=== PATIENT | female | born 1985 | race Caucasian/White ===

== ENCOUNTER 2017-11-01 10:54 | Inpatient (IN) | payer MEDICAID ==
[2017-11-01] MEDS ORDERED: hydrOXYzine HCl 25 MG Tab PO PRN (11:44)
[2017-11-01] MEDS ORDERED: hydrOXYzine HCl 25 MG Tab PO ONE (19:38)
[2017-11-02] MEDS ORDERED: Misoprostol 25 MCG (1/4 of 100 MCG) Tab VAG PRN (00:06)
[2017-11-02] MEDS ORDERED: Sodium Chloride 0.9% 10 ML Syringe FLUSH PRN (00:06)
[2017-11-02] MEDS ORDERED: Lactated Ringers 500 ML IV ONE (00:10)
[2017-11-02] MEDS ORDERED: Nalbuphine 20 MG/1 ML Amp IVPUSH PRN (00:10)
[2017-11-02] MEDS ORDERED: Lidocaine 1% 30 ML SDV INJECT PRN (00:10)
[2017-11-02] MEDS ORDERED: Ondansetron 4 MG/2 ML SDV IV PRN (00:10)
[2017-11-02] MEDS ORDERED: Carboprost Tromethamine 250 MCG/1 ML Amp IM PRN (00:10)
[2017-11-02] MEDS ORDERED: Methylergonovine 0.2 MG/1 ML Amp IM PRN (00:10)
[2017-11-02] MEDS ORDERED: Misoprostol 400 MCG (4 X 100 MCG TAB) RECTAL PRN (00:10)
[2017-11-02] MEDS ORDERED: Nalbuphine 20 MG/1 ML Amp IM PRN (00:15)
[2017-11-02] MEDS: Lactated Ringers 1,000 ML IV SCH ×3 (00:25→07:55)
[2017-11-02] MEDS: Oxytocin/Normal Saline 30 UNIT/500 ML BAG IV SCH ×2 (00:33→08:31)
[2017-11-02] MEDS ORDERED: fentaNYL 100 MCG/2 ML SDV ONE (02:41)
[2017-11-02] MEDS ORDERED: EPINEPHrine 1 MG/ML SDV ONE (02:42)
--- NOTE | 2017-11-02 03:10 | PCM.SN ---
- Free Text/Narrative Note: Intrathecal. Sitting position, sterile prep and drape. 1 % lidocaine w bicarb for skinwheal to L2 L3 interspace. Introducer, 24 ga pencan x 1. Pos CSF, neg heme, neg parasthesia. 1:1000 epi wash, 20 mcg PF sufenta, 30 mcg pf fentanyl, 0.4 mnl pf NS, 6 mg of 0.75% pf bupivacaine injected after CSF aspiration. Pt to L lateral position. Procedure time 0245 to 0310
[2017-11-02] MEDS ORDERED: Simethicone 80 MG Tab.Chew PO PRN (07:45)
[2017-11-02] MEDS ORDERED: Benzocaine/Menthol 20%-0.5% Spray 56 GM Canister TOP PRN (07:45)
[2017-11-02] MEDS ORDERED: Zolpidem 5 MG Tab PO PRN (07:45)
--- NOTE | 2017-11-02 07:55 | PCM.LDHP ---
L&D History of Present Illness - General Date of Service: 11/02/17 Admit Problem/Dx: Patient Status Order with Admit Dx/Problem 11/01/17 15:00 Admission Status [Patient Status] [ADT] Routine 11/02/17 00:11 Patient Status [ADT] Routine Admission Diagnosis/Problem Admission Diagnosis/Problem Source of Information: Patient, Family, Old Records History Limitations: Reports: No Limitations - History of Present Illness Introduction:: presented with contractions, admitted by Dr. Nickerson for observation, contractions progressing, will admit for induction as scheduled, and proceed with pitocin augmentation of labor. 32yo WF @ 39 weeks with diet- controlled GDM, elevated BP without pre-E. see notes for details. Timing/Duration: Reports: intermittent Location, : Reports: Uterus Quality: Reports: Same as Previous Episode Severity: Moderate Pain Score: 4 Associated Symptoms: Reports: vaginal discharge, mild amount - Related Data Allergies/Adverse Reactions: Allergies Allergy/AdvReac Type Severity Reaction Status Date / Time Penicillins Allergy Rash Verified 11/01/17 11:49 Home Medications: Home Meds Vits #93/Iron Fum/FA [ Formula Tablet] 1 tab PO DAILY 09/28/17 [History] Ferrous Sulfate 65 mg PO WITHBREAKFAST 10/10/17 [History] Ascorbic Acid [Vitamin C] 1 tab PO DAILY 10/17/17 [History] B12/Levomefolate Calcium/B-6 [Folbic Rf Tablet] 1 tab PO DAILY 10/17/17 [History ] Past Medical History 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 , , Other (See Below) Other OB/BYN History: one fallopian tube removed Endocrine/Metabolic History: Reports: Diabetes, Gestational Dermatologic History: Reports: Psoriasis - Infectious Disease History Infectious Disease History: Reports: Chicken Pox Social & Family History - Tobacco Use Smoking Status *Q: Never Smoker Second Hand Smoke Exposure: No - Caffeine Use Caffeine Use: Reports: None - Alcohol Use Alcohol Use History: No Alcohol Use Frequency: Socially - Recreational Drug Use Recreational Drug Use: No H&P Review of Systems - Review of Systems: Review Of Systems: See Below General: Reports: No Symptoms HEENT: Reports: No Symptoms Pulmonary: Reports: No Symptoms Cardiovascular: Reports: No Symptoms Gastrointestinal: Reports: No Symptoms Genitourinary: Reports: Other (labor) Musculoskeletal: Reports: No Symptoms Skin: Reports: Rash (psoriasis) Psychiatric: Reports: No Symptoms Neurological: Reports: No Symptoms Hematologic/Lymphatic: Reports: No Symptoms Immunologic: Reports: No Symptoms L&D Exam - Exam Exam: See Below - Vital Signs Vital Signs: Last Vital Signs Temp 98.8 F 11/02/17 05:00 Pulse 96 11/02/17 05:15 Resp 16 11/02/17 05:15 BP 118/66 11/02/17 05:15 Pulse Ox 95 11/02/17 03:30 Weight: 192 lb - OB Specific Contraction Duration (sec): 70-90 Contraction Frequency (min): 2-3 Contraction Intensity: Mild to Moderate Movement: Active Heart Tones: Present Heart Tones per Min: 140 (NST reactive) Heart Rate (FHR) Variability: Moderate (6-25 bmp) Presentation: Right Occiput Anterior (JACINDA) Estimated Weight: 7lb-7.5lb - Exam General: Alert, Oriented HEENT: PERRLA, Conjunctiva Clear, EACs Clear, EOMI, Hearing Intact, Mucosa Moist & [place], Nares Patent, Normal Nasal Septum, Posterior Pharynx Clear, TMs Clear Neck: Supple, Trachea Midline Lungs: Clear to Auscultation, Normal Respiratory Effort Cardiovascular: Regular Rate, Regular Rhythm GI/Abdominal Exam: Normal Bowel Sounds, Soft, Non-Tender, No Organomegaly, No Distention, No Abnormal Bruit, No Mass, Pelvis Stable Rectal Exam: Normal Exam Genitourinary: Normal external exam, Normal bimanual exam, Normal speculum exam Back Exam: Normal Inspection, Full Range of Motion Extremities: Normal Inspection, Normal Range of Motion, Non-Tender, No Pedal Edema, Normal Capillary Refill Skin: Warm, Dry, Intact, Rash Neurological: Cranial Nerves Intact, Reflexes Equal Bilateral Psychiatric: Alert, Normal Affect, Normal Mood - Patient Data Lab Results Last 24 hrs: Laboratory Results - last 24 hr 11/02/17 11/02/17 Range/Units 00:25 00:25 WBC 16.5 H (5.0-10.0) 10^3/uL RBC 3.97 L (4.2-5.4) 10^6/uL Hgb 13.0 (12.0-16.0) g/dL Hct 37.5 (37.0-47.0) % MCV 94.5 (80-100) fL MCH 32.7 (27.0-34.0) pg MCHC 34.7 (33.0-35.0) g/dL Plt Count 169 (150-450) 10^3/uL BUN 8 (7-18) mg/dL Creatinine 0.7 (0.6-1.3) mg/dL Est Cr Clr Drug Dosing 118.54 mL/min Estimated GFR (MDRD) > 60 Glucose 100 (74-105) mg/dL Uric Acid 4.3 (2.6-7.2) mg/dL AST 19 (10-42) IU/L Alkaline Phosphatase 100 (42-121) IU/L Lactate Dehydrogenase 149 (91-180) IU/L Result Diagrams: 11/02/17 00:25 11/02/17 00:25 - Problem List (1) SNOMED Code(s): 18042620 ICD Code: Z34.90 - ENCNTR FOR SUPRVSN OF NORMAL , UNSP, UNSP TRIMESTER Status: Acute Current Visit: Yes (2) Labor established SNOMED Code(s): 80552499 ICD Code: ZQK5621 - Status: Acute Current Visit: Yes (3) Gestational diabetes mellitus (GDM) affecting SNOMED Code(s): 62458383249212 ICD Code: O24.419 - GESTATIONAL DIABETES MELLITUS IN , UNSP CONTROL Status: Acute Current Visit: Yes (4) Gestational hypertension SNOMED Code(s): 99404021 ICD Code: O13.9 - GESTATIONAL HTN W/O SIGNIFICANT PROTEINURIA, UNSP TRIMESTER Status: Acute Current Visit: Yes (5) Blood type O+ SNOMED Code(s): 219139631 ICD Code: Z67.40 - TYPE O BLOOD, RH POSITIVE Status: Acute Current Visit : Yes (6) Rubella immune SNOMED Code(s): 644311666 ICD Code: Z78.9 - OTHER SPECIFIED HEALTH STATUS Status: Acute Current Visit: Yes (7) Group B Streptococcus not isolated SNOMED Code(s): 405594724 ICD Code: NWM9232 - Status: Acute Current Visit: Yes Problem List Initiated/Reviewed/Updated: Yes Orders Last 24hrs: Active Orders 24 hr Category Date Time Status Admission Status [Patient Status] [ADT] Routine ADT 11/01/17 15:00 Active Patient Status [ADT] Routine ADT 11/02/17 00:11 Active Communication Order [RC] ASDIRECTED Care 11/02/17 00:06 Active Communication Order [RC] ASDIRECTED Care 11/02/17 00:11 Active Monitoring [RC] PER UNIT ROUTINE Care 11/02/17 00:06 Active Notify Provider Vital Signs OB [RC] ASDIRECTED Care 11/02/17 00:06 Active Notify Provider [RC] PRN Care 11/02/17 00:06 Active Notify Provider [RC] PRN Care 11/02/17 00:11 Active Notify Provider [RC] STAT Care 11/02/17 00:06 Active OB Check [OM.PC] Click To Edit Care 11/01/17 11:45 Ordered Peripheral IV Care [RC] 08,20 Care 11/02/17 00:06 Active Pump Management, Intrathecal [RC] ASDIRECTED Care 11/02/17 00:12 Active Up ad Joceline [RC] PER UNIT ROUTINE Care 11/02/17 00:06 Active Vaginal Exam [RC] PRN Care 11/02/17 00:06 Active Vital Signs [RC] PER UNIT ROUTINE Care 11/02/17 00:06 Active Vital Signs [RC] PER UNIT ROUTINE Care 11/02/17 00:11 Active Consult to Furniture Sander [CONS] Routine Cons 11/02/17 07:45 Ordered Regular Diet [DIET] Diet 11/02/17 Breakfast Ordered CBC W/O DIFF,HEMOGRAM [HEME] AM Lab 11/04/17 05:11 Ordered PROTEIN/CREATININE RATIO,URINE [URCHEM] Routine Lab 11/02/17 00:09 Uncollected UA W/O MICROSCOPIC [URIN] Routine Lab 11/02/17 00:09 Uncollected Acetaminophen [Tylenol] Med 11/02/17 00:06 Active 650 mg PO Q4H PRN Benzocaine/Menthol [Dermoplast Pain Relief [place]] Med 11/02/17 07:45 Ordered See Dose Instructions TOP Q4H PRN Carboprost Tromethamine [Hemabate DS] Med 11/02/17 00:10 Active 250 mcg IM ASDIRECTED PRN Docusate Sodium [Colace] Med 11/02/17 07:45 Ordered 100 mg PO BID PRN Ibuprofen [Motrin] Med 11/02/17 07:45 Ordered 800 mg PO Q8H PRN Lactated Ringers [Ringers, Lactated] 1,000 ml Med 11/02/17 00:15 Active IV ASDIRECTED Lidocaine 1% [Xylocaine-MPF 1%] Med 11/02/17 00:10 Active 10 ml INJECT ASDIRECTED PRN Methylergonovine [Methergine] Med 11/02/17 00:10 Active 0.2 mg IM ASDIRECTED PRN Misoprostol [Cytotec] Med 11/02/17 00:06 Active 25 mcg VAG Q4H PRN Misoprostol [Cytotec] Med 11/02/17 00:10 Active 800 mcg RECTAL ASDIRECTED PRN Nalbuphine [Nubain] Med 11/02/17 00:10 Active 10 mg IVPUSH ONETIME PRN Nalbuphine [Nubain] Med 11/02/17 00:15 Active 20 mg IM ONETIME PRN Ondansetron [Zofran] Med 11/02/17 00:10 Active 4 mg IV Q4H PRN Oxytocin/Normal Saline [Pitocin in NS 30 UNIT/500 ML] Med 11/02/17 00:15 Active 30 unit in 500 ml IV TITRATE Vit with Ca/FA/Iron [ Plus Iron] Med 11/02/17 09:00 Ordered 1 each PO DAILY Simethicone Med 11/02/17 07:45 Ordered 80 mg PO Q4H PRN Sodium Chloride 0.9% [Saline Flush] Med 11/02/17 00:06 Active 10 ml FLUSH ASDIRECTED PRN Zolpidem [Ambien] Med 11/02/17 07:45 Ordered 5 mg PO BEDTIME PRN hydrOXYzine HCl [Atarax] Med 11/01/17 11:44 Active 50 mg PO ONETIME PRN Assess Lochia [WOMSER] Per Unit Routine Oth 11/02/17 07:45 Ordered Assess Uterine Involution [WOMSER] Per Unit Routine Oth 11/02/17 07:45 Ordered Breast Pump [WOMSER] Per Unit Routine Oth 11/02/17 07:45 Ordered Ice Therapy [OM.PC] Per Unit Routine Oth 11/02/17 07:45 Ordered Perineal Care [OM.PC] Per Unit Routine Oth 11/02/17 07:45 Ordered Peripheral IV Insertion Adult [OM.PC] Urgent Oth 11/02/17 00:06 Ordered Sitz Bath [OM.PC] Per Unit Routine Oth 11/02/17 07:45 Ordered Resuscitation Status Routine Resus Stat 11/02/17 00:10 Ordered Medication Orders Acetaminophen (Tylenol) 650 mg PO Q4H PRN PRN Reason: Pain/Fever Benzocaine/Menthol (Dermoplast Pain Relief [place]) 0 gm TOP Q4H PRN PRN Reason: Perineal comfort measures Carboprost Tromethamine (Hemabate Ds) 250 mcg IM ASDIRECTED PRN PRN Reason: HEMORRHAGE Docusate Sodium (Colace) 100 mg PO BID PRN PRN Reason: Constipation Hydroxyzine HCl (Atarax) 50 mg PO ONETIME PRN PRN Reason: Pain Last Admin: 11/01/17 12:21 Dose: 50 mg Lactated Ringer's (Ringers, Lactated) 1,000 mls @ 125 mls/hr IV ASDIRECTED TODD Last Admin: 11/02/17 02:46 Dose: 125 mls/hr Infusion: 11/02/17 02:46 Dose: 125 mls/hr Admin: 11/02/17 00:25 Dose: 125 mls/hr Oxytocin/Sodium Chloride (Pitocin In Ns 30 Unit/500 Ml) 30 unit in 500 mls @ 2 mls/hr IV TITRATE TODD; 2 MUNITS/MIN PRN Reason: Protocol Last Titration: 11/02/17 03:57 Dose: 10 mls/hr Titration: 11/02/17 03:19 Dose: 8 mls/hr Titration: 11/02/17 01:40 Dose: 6 mls/hr Titration: 11/02/17 01:07 Dose: 4 mls/hr Admin: 11/02/17 00:33 Dose: 2 munits/min, 2 mls/hr Ibuprofen (Motrin) 800 mg PO Q8H PRN PRN Reason: Mild Pain or Fever Lidocaine HCl (Xylocaine-Mpf 1%) 10 ml INJECT ASDIRECTED PRN PRN Reason: Perineal Repair Methylergonovine Maleate (Methergine) 0.2 mg IM ASDIRECTED PRN PRN Reason: Hemorrhage Misoprostol (Cytotec) 25 mcg VAG Q4H PRN PRN Reason: cervical ripening Misoprostol (Cytotec) 800 mcg RECTAL ASDIRECTED PRN PRN Reason: Hemorrhage Nalbuphine HCl (Nubain) 10 mg IVPUSH ONETIME PRN PRN Reason: Pain (moderate 4-6) Nalbuphine HCl (Nubain) 20 mg IM ONETIME PRN PRN Reason: Pain Last Admin: 11/02/17 00:36 Dose: 20 mg Ondansetron HCl (Zofran) 4 mg IV Q4H PRN PRN Reason: Nausea/Vomiting Last Admin: 11/02/17 02:35 Dose: 4 mg Prenat Multivit/Social Insurance Analyst/Iron/Folic Ac ( Plus Iron) 1 each PO DAILY TODD Simethicone (Simethicone) 80 mg PO Q4H PRN PRN Reason: Gas Sodium Chloride (Saline Flush) 10 ml FLUSH ASDIRECTED PRN PRN Reason: Keep Vein Open Zolpidem Tartrate (Ambien) 5 mg PO BEDTIME PRN PRN Reason: Insomnia Assessment/Plan Comment:: Assessment: 39 weeks GDM--diet controlled gestational HTN--no pre-E psoriasis early labor O+ RI GBS negative NST reactive Plan: admit pre-E labs pitocin augmentation check glucose continue to follow closely hmb
--- NOTE | 2017-11-02 08:14 | PCM.DEL ---
L & D Note - General Info Date of Service: 11/02/17 Mother's Due Date: 11/09/17 - Delivery Note Labor: Spontaneous, Augmented by Oxytocin Delivery Outcome: Livebirth Infant Delivery Method: Spontaneous Vaginal Delivery-Single Infant Delivery Mode: Vacuum Extraction Presentation: Right Occiput Anterior (JACINDA) Nuchal Cord: Present, Reduced Anesthesia Type: Intrathecal Amniotic Fluid Description: Clear Episiotomy Type: None Laceration: 1st Degree, Perineal Suture type: Other Suture size: 3-0 Placenta: Intact, Expressed Cord: 3 Vessels (mebranous insertion) Estimated Blood Loss: 350 Resuscitation Needed: No [place]: Suctioned, Bulb Syringe, Stimulated, Warmed (to mother's chest skin to skin), [place] Used Provider: Marisol Loaiza Score 1 min: 8 Score 5 min: 9 Second Stage Interventions: Reports: Pushing Effectively, Pushing, McRobert's Position, Pushing, Pulls Own Legs Back Delivery Comments (Free Text/Narrative):: mother pushing in [place], holding own legs. head crowing out about orange size with several contractions. vacuum applied with one push to assist for delivery without complication. hmb Vacuum Extractor Progress Note - Alternative Labor Strategies Considered Alternative Labor Strategies Considered:: Reports: Yes Strategies Considered:: Reports: Contraction Intensity Adequate Indications Considered:: Reports: Yes Indications:: Reports: Shortening of 2nd Stage for Maternal Benefit, Suspicion of Immediate or Potential Compromise Time Out:: Reports: Yes - Patient Prepared Patient Prepared:: Reports: Yes Informed Consent:: Reports: Verbal Risks: Reports: Yes Anesthesia/Analgesia Adequate:: Reports: Yes - Probability of Success High Probability of Success:: Reports: Yes Weight Estimated:: Reports: AGA Patient Diabetic:: Reports: Yes Pelvis Adequate:: Reports: Yes Position:: JACINDA Asynclitic:: Reports: No Station:: +3, past - Application Time Maximum Application Time & Number of Pop-Offs Predetermined:: Reports: Yes Type of Vacuum Used:: Reports: Cup: [place] type Vacuum Extraction: Successful - Exit Strategy Exit strategy available:: Reports: Yes and resuscitation teams readily available:: Reports: Yes Consult as indicated:: not necessary Comments:: vacuum cup applied for one push with successful delivery. b - General Info Admission Dx/Problem (Free Text): Patient Status Order with Admit Dx/Problem 11/01/17 15:00 Admission Status [Patient Status] [ADT] Routine 11/02/17 00:11 Patient Status [ADT] Routine Admission Diagnosis/Problem Admission Diagnosis/Problem Functional Status: Reports: Pain Controlled - Patient Data Vitals - Most Recent: Last Vital Signs Temp 98.8 F 11/02/17 05:00 Pulse 96 11/02/17 05:15 Resp 16 11/02/17 05:15 BP 118/66 11/02/17 05:15 Pulse Ox 95 11/02/17 03:30 Weight - Most Recent: 192 lb I&O - Last 24 Hours: Intake & Output 11/01/17 11/02/17 11/02/17 22:59 06:59 14:59 Output Total 250 Balance -250 Lab Results Last 24 Hours: Laboratory Results - last 24 hr 11/02/17 11/02/17 Range/Units 00:25 00:25 WBC 16.5 H (5.0-10.0) 10^3/uL RBC 3.97 L (4.2-5.4) 10^6/uL Hgb 13.0 (12.0-16.0) g/dL Hct 37.5 (37.0-47.0) % MCV 94.5 (80-100) fL MCH 32.7 (27.0-34.0) pg MCHC 34.7 (33.0-35.0) g/dL Plt Count 169 (150-450) 10^3/uL BUN 8 (7-18) mg/dL Creatinine 0.7 (0.6-1.3) mg/dL Est Cr Clr Drug Dosing 118.54 mL/min Estimated GFR (MDRD) > 60 Glucose 100 (74-105) mg/dL Uric Acid 4.3 (2.6-7.2) mg/dL AST 19 (10-42) IU/L Alkaline Phosphatase 100 (42-121) IU/L Lactate Dehydrogenase 149 (91-180) IU/L Med Orders - Current: Current Medications Acetaminophen (Tylenol) 650 mg PO Q4H PRN PRN Reason: Pain/Fever Benzocaine/Menthol (Dermoplast Pain Relief [place]) 0 gm TOP Q4H PRN PRN Reason: Perineal comfort measures Carboprost Tromethamine (Hemabate Ds) 250 mcg IM ASDIRECTED PRN PRN Reason: HEMORRHAGE Docusate Sodium (Colace) 100 mg PO BID PRN PRN Reason: Constipation Hydroxyzine HCl (Atarax) 50 mg PO ONETIME PRN PRN Reason: Pain Last Admin: 11/01/17 12:21 Dose: 50 mg Lactated Ringer's (Ringers, Lactated) 1,000 mls @ 125 mls/hr IV ASDIRECTED TODD Last Admin: 11/02/17 07:55 Dose: 125 mls/hr Oxytocin/Sodium Chloride (Pitocin In Ns 30 Unit/500 Ml) 30 unit in 500 mls @ 2 mls/hr IV TITRATE TODD; 2 MUNITS/MIN PRN Reason: Protocol Last Titration: 11/02/17 07:42 Dose: 250 mls/hr Ibuprofen (Motrin) 800 mg PO Q8H PRN PRN Reason: Mild Pain or Fever Lidocaine HCl (Xylocaine-Mpf 1%) 10 ml INJECT ASDIRECTED PRN PRN Reason: Perineal Repair Methylergonovine Maleate (Methergine) 0.2 mg IM ASDIRECTED PRN PRN Reason: Hemorrhage Last Admin: 11/02/17 07:23 Dose: 0.2 mg Misoprostol (Cytotec) 25 mcg VAG Q4H PRN PRN Reason: cervical ripening Misoprostol (Cytotec) 800 mcg RECTAL ASDIRECTED PRN PRN Reason: Hemorrhage Nalbuphine HCl (Nubain) 10 mg IVPUSH ONETIME PRN PRN Reason: Pain (moderate 4-6) Nalbuphine HCl (Nubain) 20 mg IM ONETIME PRN PRN Reason: Pain Last Admin: 11/02/17 00:36 Dose: 20 mg Ondansetron HCl (Zofran) 4 mg IV Q4H PRN PRN Reason: Nausea/Vomiting Last Admin: 11/02/17 02:35 Dose: 4 mg Prenat Multivit/[place]/Iron/Folic Ac ( Plus Iron) 1 each PO DAILY TODD Simethicone (Simethicone) 80 mg PO Q4H PRN PRN Reason: Gas Sodium Chloride (Saline Flush) 10 ml FLUSH ASDIRECTED PRN PRN Reason: Keep Vein Open Zolpidem Tartrate (Ambien) 5 mg PO BEDTIME PRN PRN Reason: Insomnia Discontinued Medications Epinephrine HCl (Adrenalin 1:1000) Confirm Administered Dose 1 mg .ROUTE .STK- MED ONE Stop: 11/02/17 02:43 Last Admin: 11/02/17 03:45 Dose: Not Given Fentanyl (Sublimaze) Confirm Administered Dose 100 mcg .ROUTE .STK-MED ONE Stop: 11/02/17 02:42 Last Admin: 11/02/17 03:45 Dose: Not Given Hydroxyzine HCl (Atarax) 50 mg PO ONETIME ONE Stop: 11/01/17 19:39 Last Admin: 11/01/17 20:00 Dose: 50 mg Lactated Ringer's (Ringers, Lactated) 500 mls @ 999 mls/hr IV .BOLUS ONE Stop: 11/02/17 00:40 Last Admin: 11/02/17 03:45 Dose: Not Given Sodium Bicarbonate (Sodium Bicarbonate 4.2%) Confirm Administered Dose 5 meq .ROUTE .STK-MED ONE Stop: 11/02/17 02:43 Last Admin: 11/02/17 03:45 Dose: Not Given Sufentanil Citrate (Sufenta) Confirm Administered Dose 50 mcg .ROUTE .STK-MED ONE Stop: 11/02/17 02:43 Last Admin: 11/02/17 03:46 Dose: Not Given - Exam General: Alert, Oriented HEENT: Pupils Equal, Pupils Reactive, EOMI, Mucous Membr. Moist/[place] Neck: Supple Lungs: Clear to Auscultation, Normal Respiratory Effort Cardiovascular: Regular Rate, Regular Rhythm GI/Abdominal Exam: Normal Bowel Sounds, Soft, Non-Tender, No Organomegaly, No Distention, No Abnormal Bruit, No Mass, Pelvis Stable (Female) Exam: Normal External Exam, Normal Speculum Exam, Normal Bimanual Exam Back Exam: Normal Inspection, Full Range of Motion Extremities: Normal Inspection, Normal Range of Motion, Non-Tender, No Pedal Edema, Normal Capillary Refill Skin: Warm, Dry, Intact Wound/Incisions: Healing Well Neurological: No New Focal Deficit Psy/Mental Status: Alert, Normal Affect, Normal Mood - Problem List & Annotations (1) SNOMED Code(s): 62253064 Code(s): Z34.90 - ENCNTR FOR SUPRVSN OF NORMAL , UNSP, UNSP TRIMESTER Status: Acute Current Visit: Yes (2) Labor established SNOMED Code(s): 29655000 Code(s): YJA9672 - Status: Acute Current Visit: Yes (3) Gestational diabetes mellitus (GDM) affecting SNOMED Code(s): 52240281657095 Code(s): O24.419 - GESTATIONAL DIABETES MELLITUS IN , UNSP CONTROL Status: Acute Current Visit: Yes (4) Gestational hypertension SNOMED Code(s): 94818458 Code(s): O13.9 - GESTATIONAL HTN W/O SIGNIFICANT PROTEINURIA, UNSP TRIMESTER Status: Acute Current Visit: Yes (5) Blood type O+ SNOMED Code(s): 471459823 Code(s): Z67.40 - TYPE O BLOOD, RH POSITIVE Status: Acute Current Visit: Yes (6) Rubella immune SNOMED Code(s): 236186997 Code(s): Z78.9 - OTHER SPECIFIED HEALTH STATUS Status: Acute Current Visit: Yes (7) Group B Streptococcus not isolated SNOMED Code(s): 322490555 Code(s): RTJ8138 - Status: Acute Current Visit: Yes - Problem List Review Problem List Initiated/Reviewed/Updated: Yes - My Orders Last 24 Hours: My Active Orders 11/02/17 00:06 Communication Order [RC] ASDIRECTED Monitoring [RC] PER UNIT ROUTINE Notify Provider Vital Signs OB [RC] ASDIRECTED Notify Provider [RC] PRN Notify Provider [RC] STAT Peripheral IV Care [RC] 08,20 Up ad Joceline [RC] PER UNIT ROUTINE Vaginal Exam [RC] PRN Vital Signs [RC] PER UNIT ROUTINE Acetaminophen [Tylenol] 650 mg PO Q4H PRN Misoprostol [Cytotec] 25 mcg VAG Q4H PRN Sodium Chloride 0.9% [Saline Flush] 10 ml FLUSH ASDIRECTED PRN Peripheral IV Insertion Adult [OM.PC] Urgent 11/02/17 00:09 PROTEIN/CREATININE RATIO,URINE [URCHEM] Routine UA W/O MICROSCOPIC [URIN] Routine 11/02/17 00:10 Carboprost Tromethamine [Hemabate DS] 250 mcg IM ASDIRECTED PRN Lidocaine 1% [Xylocaine-MPF 1%] 10 ml INJECT ASDIRECTED PRN Methylergonovine [Methergine] 0.2 mg IM ASDIRECTED PRN Misoprostol [Cytotec] 800 mcg RECTAL ASDIRECTED PRN Nalbuphine [Nubain] 10 mg IVPUSH ONETIME PRN Ondansetron [Zofran] 4 mg IV Q4H PRN Resuscitation Status Routine 11/02/17 00:11 Patient Status [ADT] Routine Communication Order [RC] ASDIRECTED Notify Provider [RC] PRN Vital Signs [RC] PER UNIT ROUTINE 11/02/17 00:12 Pump Management, Intrathecal [RC] ASDIRECTED 11/02/17 00:15 Lactated Ringers [Ringers, Lactated] 1,000 ml IV ASDIRECTED Nalbuphine [Nubain] 20 mg IM ONETIME PRN Oxytocin/Normal Saline [Pitocin in NS 30 UNIT/500 ML] 30 unit in 500 ml IV TITRATE 11/02/17 07:45 Consult to Child Support Officer [CONS] Routine Benzocaine/Menthol [Dermoplast Pain Relief [place]] See Dose Instructions TOP Q4H PRN Docusate Sodium [Colace] 100 mg PO BID PRN Ibuprofen [Motrin] 800 mg PO Q8H PRN Simethicone 80 mg PO Q4H PRN Zolpidem [Ambien] 5 mg PO BEDTIME PRN Assess Lochia [WOMSER] Per Unit Routine Assess Uterine Involution [WOMSER] Per Unit Routine Breast Pump [WOMSER] Per Unit Routine Ice Therapy [OM.PC] Per Unit Routine Perineal Care [OM.PC] Per Unit Routine Sitz Bath [OM.PC] Per Unit Routine 11/02/17 09:00 Vit with Ca/FA/Iron [ Plus Iron] 1 each PO DAILY 11/02/17 Breakfast Regular Diet [DIET] 11/04/17 05:11 CBC W/O DIFF,HEMOGRAM [HEME] AM - Plan Plan:: Assessment: 39 weeks 32yo G3 now P1021 VAVD viable female "Tina" 7lb 2oz 3220g APGARs 8 & 9 born @ 0715 on [birth year] GDM--diet controlled gestational HTN--no pre-E psoriasis O+ RI GBS negative methergine was given to help with uterine involution in addition to pitocin Plan: continue care check glucose prn continue to follow closely consult hgb on PPD #2 hmb
[2017-11-02] MEDS: Ibuprofen 800 MG Tab PO PRN ×2 (09:05→19:37)
[2017-11-02] MEDS: Prenatal Multivitamin with Calcium/Folic Acid/Iron Tab PO SCH (09:05)
[2017-11-02] MEDS: Docusate Sodium 100 MG Cap PO PRN ×2 (09:05→19:38)
[2017-11-02] MEDS: Acetaminophen 325 MG Tab PO PRN ×2 (10:55→21:43)
[2017-11-03] MEDS: Ibuprofen 800 MG Tab PO PRN ×2 (05:18→17:18)
[2017-11-03] MEDS: Prenatal Multivitamin with Calcium/Folic Acid/Iron Tab PO SCH (09:08)
[2017-11-03] MEDS: Docusate Sodium 100 MG Cap PO PRN ×2 (09:08→21:09)
[2017-11-03] MEDS: Acetaminophen 325 MG Tab PO PRN ×2 (09:08→21:09)
--- NOTE | 2017-11-03 14:03 | PCM.SN ---
- Free Text/Narrative Note: DOS: 11-03-17 PPD #1 Hawa delivered her first baby by VAVD yesterday. 7lb 2oz vialbe female without complications Hawa is doing well. flow decreasing. eating, voiding and has had a BM. ambulating without difficulty. nursing is going well and she has seen our mgmt consultant. VSS fundus firm. breasts still soft Will continuye to watch closely. likely home tomorrow. will check hgb in the morning. all questions answered for pt and SO today. hmb
[2017-11-04] MEDS: Ibuprofen 800 MG Tab PO PRN ×2 (02:08→10:06)
[2017-11-04] MEDS: Docusate Sodium 100 MG Cap PO PRN (10:05)
[2017-11-04] MEDS: Prenatal Multivitamin with Calcium/Folic Acid/Iron Tab PO SCH (10:05)
[2017-11-04] MEDS ORDERED: fentaNYL 100 MCG/2 ML SDV ITHECAL ONE (11:59)
--- NOTE | 2017-11-05 01:52 | DISCH ---
ADMIT DIAGNOSES: 1. Thirty nine weeks, 32-year-old 3, now para 1-0-2-1. 2. Vacuum-assisted vaginal delivery of a viable female on 11/02/2017 at 7:15 a.m. 3. O positive blood type. 4. Group B streptococcus negative. 5. Rubella immune. 6. Gestational diabetes, diet controlled. 7. Transient gestational hypertension without preeclampsia. 8. Mild anemia. 9. mom. PROCEDURES FOR THIS HOSPITALIZATION: Include NST interpretation, Pitocin augmentation, vacuum-assisted vaginal delivery, first-degree laceration repair, perineum. FINDINGS: This delightful 32-year-old 3, para 0-0-2-0, presented at 38 and 6/7 weeks' gestation with prodromal labor and was subsequently admitted for observation by Dr. Nickerson. Please see those notes for details. She went into an early labor and subsequently was evaluated and admitted by me on 11/02/2017. She had spontaneous rupture of membranes and then Pitocin augmentation. She went on to have an intrathecal analgesia placed with excellent results. She progressed to complete dilation, was pushing nicely, and baby's head was out. A vacuum was placed for 1 push to assist with delivery of this viable female infant with scores of 8 and 9 at 1 and 5 minutes respectively. Baby went skin to skin with mom immediately after delivery and did well. weight was 7 pounds 2 ounces. Baby is . Please see my admission H and P and delivery notes for further details. Her course has been uneventful. She had transient hypertension on admission, but her preeclampsia labs were unremarkable, and she showed no signs of progressive preeclampsia. Her blood pressure and vitals have been stable since delivery. She has remained afebrile. She is voiding, eating, and ambulating well. Reports she has had a bowel movement without a difficulty. She is without problems and has been seen by our instructional systems design consultant. Hemoglobin was 13 on admission, 10.9 on discharge day. The patient was seen on 11/04/2017 and felt to be stable and ready for discharge. Discharged home today in good condition. She will follow up for a 6- week examination, sooner with any problems. Routine discharge instructions given. Will follow routine discharge orders and go from there. Will use vitamins, iron supplementation, [id number] nonsteroidals for cramping and things as needed. All questions were answered. Further management pending her course at home. [facility] /[id number]
== END 2017-11-04 12:00 | disposition home or self-care (01) | DRG 775 ==
LOC: DL.OBCHECK 10:54 → DL.OB 15:00 → OBSVTOIN 11-02 07:15
PROVIDERS: ADMIT Family Medicine; ATTEND Family Medicine
PROC: 10D07Z6 Extraction of Products of Conception, Vacuum, Via Natural or Artificial Opening (ICD-10-PCS; principal; 2017-11-02)
PROC: 0HQ9XZZ Repair Perineum Skin, External Approach (ICD-10-PCS; 2017-11-02)
PROC: 00HU33Z Insertion of Infusion Device into Spinal Canal, Percutaneous Approach (ICD-10-PCS; 2017-11-02)
PROC: 3E0R3BZ Introduction of Anesthetic Agent into Spinal Canal, Percutaneous Approach (ICD-10-PCS; 2017-11-02)
DX: O24.420 Gestational diabetes mellitus in childbirth, diet controlled (principal); Z37.0 Single live birth; O13.4 Gestational [pregnancy-induced] hypertension without significant proteinuria, complicating childbirth; Z3A.39 39 weeks gestation of pregnancy; Z88.0 Allergy status to penicillin; O75.89 Other specified complications of labor and delivery; L40.9 Psoriasis, unspecified; O70.0 First degree perineal laceration during delivery; O69.81X0 Labor and delivery complicated by cord around neck, without compression, not applicable or unspecified; O90.81 Anemia of the puerperium
CPT/HCPCS: 01967; 36415; 51701; 59025; 59300; 59409; 82565; 82947; 83615; 84075; 84450; 84520; 84550; 85027; A9270-GY; J2210; J2300; J2405; J2590; J3010; J7120

== ENCOUNTER 2020-07-12 21:11 | Emergency (ER) | payer MEDICAID ==
[2020-07-12] MEDS ORDERED: Nitrofurantoin Monohydrate/Macrocrystalline 100 MG Cap PO ONE ×2 (21:12→22:20)
--- NOTE | 2020-07-12 21:25 | EDM.PDOC ---
ED HPI GENERAL MEDICAL PROBLEM - General Chief Complaint: Genitourinary Problem Stated Complaint: 11 WEEKS ...SPOTTING Time Seen by Provider: 07/12/20 21:22 Source of Information: Reports: Patient History Limitations: Reports: No Limitations - History of Present Illness INITIAL COMMENTS - FREE TEXT/NARRATIVE: [id number] @ [address] Chopra 2 weeks ago HCG going up. started burning pressure sensation suprapubic and right low back last night not getting better had UTI before. 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 ED EXAM, RENAL/ - Physical Exam Exam: See Below Exam Limited By: No Limitations General Appearance: Alert, WD/WN, Mild Distress, Other (discomfort). No: Active Emesis Ears: Hearing Grossly Normal Throat/Mouth: Normal Voice, No Airway Compromise Head: Atraumatic Neck: Non-Tender, Full Range of Motion Respiratory/Chest: No Respiratory Distress Cardiovascular: Regular Rate, Rhythm GI/Abdominal: Soft, Non-Tender Neurological: Alert, Oriented, Normal Cognition, Normal Gait, No Motor/Sensory Deficits Psychiatric: Normal Affect, Normal Mood Skin Exam: Warm, Dry, Normal Color Lymphatic: No Adenopathy Course - Vital Signs Last Recorded V/S: Last Vital Signs Temp 36.0 C L 07/12/20 21:16 Pulse 103 H 07/12/20 21:16 Resp 14 07/12/20 21:16 BP 137/91 H 07/12/20 21:16 Pulse Ox 100 07/12/20 21:16 - Orders/Labs/Meds Labs: Laboratory Tests 07/12/20 Range/Units 21:20 Urine Color Yellow (YELLOW) Urine Appearance Slightly cloudy (CLEAR) Urine pH 6.5 (5.0-9.0) Ur Specific [place] 1.020 (1.005-1.030) Urine Protein Negative (NEGATIVE) Urine Glucose (UA) Negative (NEGATIVE) Urine Ketones Negative (NEGATIVE) Urine Occult Blood Large H (NEGATIVE) Urine Nitrite Negative (NEGATIVE) Urine Bilirubin Negative (NEGATIVE) Urine Urobilinogen 0.2 (0.2-1.0) mg/dL Ur Leukocyte Esterase Negative (NEGATIVE) Urine RBC 10-20 H /HPF Urine WBC 0-5 (0-5/HPF) /HPF Ur Epithelial Cells Few (NOT SEEN) /HPF Amorphous Sediment Rare (NOT SEEN) /HPF Urine Bacteria Rare (0-FEW/HPF) /HPF Urine Mucus Few H (NOT SEEN) /LPF Meds: Medications Discontinued Medications Generic Name Dose Route Start Last Admin Trade Name Freq PRN Reason Stop Dose Admin Nitrofurantoin Macrocrystals 100 mg 07/12/20 22:20 Macrobid PO 07/12/20 22:21 ONETIME ONE - Re-Assessments/Exams Free Text/Narrative Re-Assessment/Exam: 07/12/20 22:23 results discussed with pt. Departure - Departure Time of Disposition: 22:23 Disposition: Home, Self-Care 01 Condition: Good Clinical Impression: UTI, Urinary tract infectious disease - Discharge Information Instructions: Urinary Tract Infection, Adult, [id number] Forms: ED Department Discharge Additional Instructions: 1) drink lots of liquids 2) follow up at clinic rx given; macrobid 100mg bid x 20 Sepsis Event Note (ED) - Focused Exam Vital Signs: Vital Signs Temp Pulse Resp BP Pulse Ox 07/12/20 21:16 36.0 C L 103 H 14 137/91 H 100
[2020-07-12] MEDS ORDERED: Nitrofurantoin Monohydrate/Macrocrystalline 100 MG Cap ONE (22:27)
== END 2020-07-12 22:33 | disposition home or self-care (01) ==
LOC: DL.ED 21:11
DX: O23.41 Unspecified infection of urinary tract in pregnancy, first trimester (principal); Z3A.11 11 weeks gestation of pregnancy; Z88.0 Allergy status to penicillin
CPT/HCPCS: 81001; 99283; A9270